=== PATIENT | male | born 1985 | race Caucasian/White ===

== ENCOUNTER 2016-09-14 11:02 | Emergency (ER) | payer SELFPAY ==
[~2016-09-14] VITALS: Ht 175.3 cm; Wt 80.0 kg
[2016-09-14 11:05] VITALS: BP 150/76; PULSE 83; RESP 16; TEMP 98.3; O2SAT 98
[2016-09-14] MEDS ORDERED: SODIUM CHLOR 0.9% 1000 ML INJ 1,000 ML IV SCH (11:38)
[2016-09-14] MEDS ORDERED: MORPHINE SULFATE 4 MG/ML INJ IV PUSH ONE ×2 (11:45→13:15)
[2016-09-14] MEDS ORDERED: ONDANSETRON HCL 4 MG/2 ML VIAL IVP ONE (11:45)
[2016-09-14] MEDS ORDERED: KETOROLAC TROMETHAMINE 30 MG/ML (IVP) VIAL IVP ONE (11:45)
--- NOTE | 2016-09-14 11:45 | PD ---
HPI Chief Complaint: GI Complaint Time Seen by Provider: 11:30 Travel History International Travel<30 days: No Contact w/Intl Traveler<30days: No Traveled to known affect area: No History of Present Illness HPI Patient is a 30-year-old male with history of Crohn's disease here with complaint of abdominal pain. Patient states that he has had abdominal pain for the last week, primarily right lower quadrant radiating throughout the abdomen. This is crampy in nature and associated with diarrhea and some darker colored stool though no kelton hematochezia. Patient perceives this to be typical for his Crohn's flare. He is here visiting family from [place]. He called and spoke with his physician in [place] who called him a Medrol Dosepak to the pharmacy which she started taking 5 days ago. Patient has not had improvement. He has been compliant with his Humira every other week, mesalamine 3 times a day, and Percocet 10/325, Zofran 8 mg when necessary. At had any fevers, chills. Some nausea but no vomiting. He does have a history of strictures resulting in bowel obstruction requiring small bowel resection 3. He is status post appendectomy. [facility] Past Medical History Diminished Hearing: No Gastrointestinal Disorders: Yes (CROHNS) Tetanus Vaccination: Unknown Influenza Vaccination: No Past Surgical History Abdominal Surgery: Yes (small bowel resection 3) Appendectomy: Yes Social History Alcohol Use: No Tobacco Use: No Substance Use: No Allergies-Medications (Allergen,Severity, Reaction): Coded Allergies: No Known Allergies (Unverified , 09/14/16) Review of Systems Except as stated in HPI: all other systems reviewed are Neg Physical Exam Narrative GENERAL: Well-appearing male in no acute distress SKIN: Focused skin assessment warm/dry. HEAD: Normocephalic. EYES: No scleral icterus. No injection or drainage. ENT: Mucous membranes pink and moist. NECK: Supple CARDIOVASCULAR: Regular rate and rhythm. RESPIRATORY: No accessory muscle use. GASTROINTESTINAL: Well-healed old surgical scars. Abdomen soft, mild right lower quadrant tenderness to palpation, periumbilical tenderness to palpation without rebound or guarding MUSCULOSKELETAL: Normal gait NEUROLOGICAL: Awake and alert. Normal speech. PSYCHIATRIC: Appropriate mood and affect; insight and judgment normal. Data Data Last Documented VS Vital Signs Date Time Temp Pulse Resp B/P Pulse Ox O2 Delivery O2 Flow Rate FiO2 09/14/16 12:53 16 6/25/17 11:05 98.3 83 150/76 98 Orders Complete Blood Count With Diff (09/14/16 11:38) Comprehensive Metabolic Panel (09/14/16 11:38) Lipase (09/14/16 11:38) Urinalysis - C+S If Indicated (09/14/16 11:38) Iv Access Insert/Monitor (09/14/16 11:38) Oximetry (09/14/16 11:38) Morphine Inj (Morphine Inj) (09/14/16 11:45) Ondansetron Inj (Zofran Inj) (09/14/16 11:45) Sodium Chlor 0.9% 1000 Ml Inj (Ns 1000 M (09/14/16 11:38) Sodium Chloride 0.9% Flush (Ns Flush) (09/14/16 11:45) Ketorolac Inj (Toradol Inj) (09/14/16 11:45) Vascular Access Team Consult/P PRN (09/14/16 11:57) Vascular Poc Ultrasound (09/14/16 ) Labs Laboratory Tests Test 09/14/16 12:00 White Blood Count 9.0 TH/MM3 Red Blood Count 5.58 MIL/MM3 Hemoglobin 16.1 GM/DL Hematocrit 47.1 % Mean Corpuscular Volume 84.4 FL Mean Corpuscular Hemoglobin 28.8 PG Mean Corpuscular Hemoglobin 34.1 % Concent Red Cell Distribution Width 16.5 % Platelet Count 241 TH/MM3 Mean Platelet Volume 7.3 FL Neutrophils (%) (Auto) 73.1 % Lymphocytes (%) (Auto) 17.0 % Monocytes (%) (Auto) 8.0 % Eosinophils (%) (Auto) 1.8 % Basophils (%) (Auto) 0.1 % Neutrophils # (Auto) 6.6 TH/MM3 Lymphocytes # (Auto) 1.5 TH/MM3 Monocytes # (Auto) 0.7 TH/MM3 Eosinophils # (Auto) 0.2 TH/MM3 Basophils # (Auto) 0.0 TH/MM3 CBC Comment DIFF FINAL Differential Comment Urine Color LIGHT-YELLOW Urine Turbidity CLEAR Urine pH 7.5 Urine Specific [place] 1.005 Urine Protein NEG mg/dL Urine Glucose (UA) NEG mg/dL Urine Ketones NEG mg/dL Urine Occult Blood NEG Urine Nitrite NEG Urine Bilirubin NEG Urine Urobilinogen LESS THAN 2.0 MG/DL Urine Leukocyte Esterase NEG Urine WBC LESS THAN 1 /hpf Microscopic Urinalysis Comment CULT NOT INDICATED Sodium Level 137 MEQ/L Potassium Level 4.0 MEQ/L Chloride Level 103 MEQ/L Carbon Dioxide Level 28.4 MEQ/L Anion Gap 6 MEQ/L Blood Urea Nitrogen 13 MG/DL Creatinine 0.93 MG/DL Estimat Glomerular Filtration 94 ML/MIN Rate Random Glucose 79 MG/DL Calcium Level 8.7 MG/DL Total Bilirubin 0.7 MG/DL Aspartate Amino Transf 14 U/L (AST/SGOT) Alanine Aminotransferase 25 U/L (ALT/SGPT) Alkaline Phosphatase 88 U/L Total Protein 7.3 GM/DL Albumin 3.7 GM/DL Lipase 77 U/L [facility] Medical Decision Making Medical Screen Exam Complete: Yes Emergency Medical Condition: Yes Medical Record Reviewed: Yes Differential Diagnosis 30-year-old male with history of Crohn's with previous strictures/bowel obstruction requiring small bowel resection here with increasing right lower quadrant him. Local dental pain 1 week typical for his previous Crohn's flare. Differential includes Crohn's flare, stricture, abscess, fistula, and less likely bowel obstruction. Patient is status post appendectomy. Narrative Course Patient placed on monitor, IV established and blood obtained. Given 1 L normal saline bolus, 4 mg Zofran, 4 mg morphine, 30 mg Toradol. CBC, CMP, lipase and urinalysis unremarkable. Patient still uncomfortable requiring repeat doses of morphine but abdominal examination remains benign and given his normal laboratory workup he and I both would like to avoid imaging if he's had multiple CT scans in the past. We'll discharged home with steroid burst outpatient GI follow-up. Diagnosis Primary Impression: Crohn's colitis Qualified Code: K50.10 - Crohn's colitis, without complications Referrals: [facility] call for appointment Additional Instructions: Steroids as prescribed. Continue home pain medications and antinausea medications. Consider follow-up with your GI physician and Kevin versus returning to [place]. Med/Other Pt SpecificInfo: Prescription(s) given Scripts Prednisone 50 Mg Tab50 Mg PO DAILY 5 Days Ref 0 Prov:Fanny Rainey MD 09/14/16 Disposition: 01 DISCHARGE HOME Condition: Stable Fanny Rainey MD Sep 14, 2016 11:45
[2016-09-14 12:00] VITALS: RESP 16
[2016-09-14] MEDS: SODIUM CHLORIDE 0.9% FLUSH 10 ML FLUSH IV FLUSH PRN ×2 (12:19→13:20)
[2016-09-14 12:38] LABS: AUTOMATED NEUTROPHIL # 6.6 TH/MM3 (1.8-7.7); BASOPHIL % 0.1 % (0.0-2.0); EOSINOPHIL # 0.2 TH/MM3 (0-0.4); EOSINOPHIL % 1.8 % (0.0-4.0); HEMATOCRIT 47.1 % (39.0-51.0); HEMO FLAGS DIFF FINAL; LYMPHOCYTE # 1.5 TH/MM3 (1.0-4.8); MEAN CELL VOLUME 84.4 FL (80.0-100.0); MEAN CORPUSCULAR HEMOGLOBIN 28.8 PG (27.0-34.0); MEAN CORPUSCULAR HGB CONC 34.1 % (32.0-36.0); NEUT % 73.1 % (16.0-70.0); PLATELET COUNT 241 TH/MM3 (150-450); RED BLOOD COUNT 5.58 MIL/MM3 (4.50-5.90); RED CELL DISTRIBUTION WIDTH 16.5 % (11.6-17.2)
[2016-09-14 12:45] LABS: BLOOD, URINE NEG (NEG); GLUCOSE,URINE NEG (NEG); KETONE, URINE NEG (NEG); NITRITE,URINE NEG (NEG); PH, URINE 7.5 (5.0-8.5); URINE COLOR LIGHT-YELLOW (YELLW/STRAW)
[2016-09-14 12:49] LABS: COMMENT (UR) CULT NOT INDICATED; CULTURE IF INDICATED CULT NOT INDICATED
[2016-09-14 12:57] LABS: ANION GAP 6 MEQ/L (5-15); AST (GOT) 14 U/L (15-37); BICARBONATE 28.4 MEQ/L (21.0-32.0); BLOOD UREA NITROGEN 13 MG/DL (7-18); CHLORIDE 103 MEQ/L (98-107); GLOMERULAR FILTRATION RATE 94 ML/MIN (>89); SODIUM (NA) 137 MEQ/L (136-145)
[2016-09-14 12:58] LABS: ALT (GPT) 25 U/L (12-78)
[2016-09-14 13:00] LABS: ALKALINE PHOSPHATASE 88 U/L (45-117); TOTAL BILIRUBIN ADULT 0.7 MG/DL (0.2-1.0)
[2016-09-14] MEDS ORDERED: PRED50 PO (13:14)
[2016-09-14] MEDS ORDERED: oxyCODONE/ACETAMINOPHEN 10 MG/325 MG TAB PO ONE (13:15)
[2016-09-14 13:38] VITALS: RESP 16
== END 2016-09-14 13:39 | disposition home or self-care (01) ==
LOC: NEPD 11:02
DX: K50.10 Crohn's disease of large intestine without complications (principal)
CPT/HCPCS: 80053; 81001; 83690; 85025; 96361; 96374; 96375; 99285; J1885; J2270; J2405; J7030

== ENCOUNTER 2016-11-28 19:03 | Emergency (ER) | payer MEDICAID, OTHER ==
[~2016-11-28] VITALS: Ht 175.3 cm; Wt 82.0 kg
[~2016-11-28 19:03] MED LIST: PRED50 PO
[2016-11-28 19:05] VITALS: BP 131/83; PULSE 88; RESP 15; TEMP 98.5; O2SAT 97
[2016-11-28] MEDS ORDERED: ZOFR8TAB4 SL (19:15)
[2016-11-28] MEDS ORDERED: PROT40TA PO (19:15)
[2016-11-28] MEDS ORDERED: MESA1TAB2 PO (19:15)
[2016-11-28] MEDS ORDERED: HUMI40KI SQ (19:15)
[2016-11-28] MEDS ORDERED: PERC10TA27 PO (19:15)
[2016-11-28] MEDS ORDERED: LEVE500 PO (19:15)
[2016-11-28] MEDS ORDERED: SODIUM CHLOR 0.9% 1000 ML INJ 1,000 ML IV SCH (19:34)
--- NOTE | 2016-11-28 19:36 | PD ---
HPI Chief Complaint: GI Complaint Time Seen by Provider: 19:21 Travel History International Travel<30 days: No Contact w/Intl Traveler<30days: No Traveled to known affect area: No History of Present Illness HPI 31-year-old male came to the emergency room with history of abdominal pain, nausea and vomiting. Patient says that he has history of Crohn's disease and this has been going on for over 1 week. He was at [facility] twice last week when he had CAT scans done both times. He was discharged home and was told that he had some inflammation that goes with Crohn's disease. Patient GI is from [place] and patient has had past 10 years of extensive Crohn's history with multiple surgery as per him. He did not appear to be in significant distress. Vital signs were stable. Describes pain all over the abdomen. No blood in the stool or vomit. Patient said last vomiting was 2-4 hours ago. He finished a course steroid tapering dose last dose of prednisone was yesterday. He is on fentanyl patch at home along with Pentasa, Zofran ODT as well as Vicodin's. [facility] Past Medical History Narrative Medical list of his past medical, surgical, social and family history is reviewed from the nursing note. Diminished Hearing: No Gastrointestinal Disorders: Yes (CROHNS) Past Surgical History Abdominal Surgery: Yes (small bowel resection 3) Appendectomy: Yes Social History Alcohol Use: Yes (SOCIAL) Tobacco Use: No Substance Use: No Allergies-Medications (Allergen,Severity, Reaction): Coded Allergies: No Known Allergies (Unverified , 12/01/16) Comments No known drug allergies. Reported Meds & Prescriptions Reported Meds & Active Scripts Active Zofran Odt (Ondansetron Odt) 8 Mg Tab 8 Mg SL Q12HR PRN Reported Prednisone 20 Mg Tab 20 Mg PO TID 40 MG twice a day x 3 days, then 20 MG daily x 3 days, then 10 MG daily x 3 days Percocet (Oxycodone-Acetaminophen) 10-325 mg Tab 1 Tab PO Q6H PRN Humira 2-Pack Inj (Adalimumab 2-Pack Inj) 40 Mg/0.8 Ml Syr 40 Mg SQ Q14D Protonix (Pantoprazole Sodium) 40 Mg Tab 40 Mg PO BID Mesalamine DR (Mesalamine) 800 Mg Tab 800 Mg PO TID Keppra (Levetiracetam) 500 Mg Tab 500 Mg PO BID Narrative Medication List of his home medications reviewed from the nursing note. Review of Systems Except as stated in HPI: all other systems reviewed are Neg Physical Exam Narrative GENERAL: Awake, alert, mild distress SKIN: Focused skin assessment warm/dry. HEAD: Atraumatic. Normocephalic. EYES: Pupils equal and round. No scleral icterus. No injection or drainage. ENT: No nasal bleeding or discharge. Mucous membranes pink and moist. NECK: Trachea midline. No JVD. CARDIOVASCULAR: Regular rate and rhythm. No murmur appreciated. RESPIRATORY: No accessory muscle use. Clear to auscultation. Breath sounds equal bilaterally. GASTROINTESTINAL: Abdomen soft, non-tender, nondistended. Hepatic and splenic margins not palpable. MUSCULOSKELETAL: No obvious deformities. No clubbing. No cyanosis. No edema. NEUROLOGICAL: Awake and alert. No obvious cranial nerve deficits. Motor grossly within normal limits. Normal speech. PSYCHIATRIC: Appropriate mood and affect; insight and judgment normal. Data Data Last Documented VS Orders Orders Complete Blood Count With Diff (11/28/16 19:34) Comprehensive Metabolic Panel (11/28/16 19:34) Lipase (11/28/16 19:34) Iv Access Insert/Monitor (11/28/16 19:34) Ecg Monitoring (11/28/16 19:34) Oximetry (11/28/16 19:34) Ondansetron Inj (Zofran Inj) (11/28/16 19:45) Sodium Chlor 0.9% 1000 Ml Inj (Ns 1000 M (11/28/16 19:34) Sodium Chloride 0.9% Flush (Ns Flush) (11/28/16 19:45) Ketorolac Inj (Toradol Inj) (11/28/16 19:45) Morphine Inj (Morphine Inj) (11/28/16 20:30) Labs Laboratory Tests Test 11/28/16 19:41 White Blood Count 7.5 TH/MM3 Red Blood Count 5.18 MIL/MM3 Hemoglobin 15.3 GM/DL Hematocrit 44.2 % Mean Corpuscular Volume 85.4 FL Mean Corpuscular Hemoglobin 29.6 PG Mean Corpuscular Hemoglobin Concent 34.6 % Red Cell Distribution Width 15.3 % Platelet Count 292 TH/MM3 Mean Platelet Volume 7.4 FL Neutrophils (%) (Auto) 56.6 % Lymphocytes (%) (Auto) 29.0 % Monocytes (%) (Auto) 11.1 % Eosinophils (%) (Auto) 2.8 % Basophils (%) (Auto) 0.5 % Neutrophils # (Auto) 4.3 TH/MM3 Lymphocytes # (Auto) 2.2 TH/MM3 Monocytes # (Auto) 0.8 TH/MM3 Eosinophils # (Auto) 0.2 TH/MM3 Basophils # (Auto) 0.0 TH/MM3 CBC Comment DIFF FINAL Differential Comment Blood Urea Nitrogen 9 MG/DL Creatinine 0.99 MG/DL Random Glucose 84 MG/DL Total Protein 8.1 GM/DL Albumin 4.1 GM/DL Calcium Level 8.6 MG/DL Alkaline Phosphatase 87 U/L Aspartate Amino Transf (AST/SGOT) 23 U/L Alanine Aminotransferase (ALT/SGPT) 24 U/L Total Bilirubin 0.4 MG/DL Sodium Level 139 MEQ/L Potassium Level 4.2 MEQ/L Chloride Level 105 MEQ/L Carbon Dioxide Level 26.4 MEQ/L Anion Gap 8 MEQ/L Estimat Glomerular Filtration Rate 87 ML/MIN Lipase 92 U/L [facility] Medical Decision Making Medical Screen Exam Complete: Yes Emergency Medical Condition: Yes Medical Record Reviewed: Yes Differential Diagnosis Acute appendicitis, acute on chronic abdominal pain, Crohn's fill her Narrative Course 8:59 PM blood test results were done and they're back and are completely within normal limits. Because patient had 2 CAT scans done within past 1 week I'm not subjecting him to anymore radiations. We have called [facility] and asked them to fax these paperwork of the results but I have not received it yet. Patient was given IV fluid and IV Toradol but he has asked by nurse constantly to get some opiates since he is on a lot of opiates at home and as per him Toradol usually will do nothing. I gave him morphine but at this point given all the test results I am comfortable discharging him home. He needs to follow up with his GI in [place] at the latest possibility. Procedures EKG Prior to Arrival: No Diagnosis Primary Impression: Chronic abdominal pain Additional Impression: Vomiting Qualified Codes: R11.2 - Nausea with vomiting, unspecified Additional Instructions: Continue taking her medications like is supposed to. When earliest possible follow-up with your GI specialist. Disposition: 01 DISCHARGE HOME Condition: Stable Anita,Shravanti R. MD Nov 28, 2016 19:36
[2016-11-28] MEDS ORDERED: SODIUM CHLORIDE 0.9% FLUSH 10 ML FLUSH IV FLUSH PRN (19:45)
[2016-11-28] MEDS ORDERED: ONDANSETRON HCL 4 MG/2 ML VIAL IVP ONE (19:45)
[2016-11-28] MEDS ORDERED: KETOROLAC TROMETHAMINE 30 MG/ML (IVP) VIAL IVP ONE (19:45)
[2016-11-28 19:50] VITALS: O2SAT 98
[2016-11-28 20:04] LABS: AUTOMATED NEUTROPHIL # 4.3 TH/MM3 (1.8-7.7); BASOPHIL % 0.5 % (0.0-2.0); EOSINOPHIL # 0.2 TH/MM3 (0-0.4); EOSINOPHIL % 2.8 % (0.0-4.0); HEMATOCRIT 44.2 % (39.0-51.0); HEMO FLAGS DIFF FINAL; LYMPHOCYTE # 2.2 TH/MM3 (1.0-4.8); MEAN CELL VOLUME 85.4 FL (80.0-100.0); MEAN CORPUSCULAR HEMOGLOBIN 29.6 PG (27.0-34.0); MEAN CORPUSCULAR HGB CONC 34.6 % (32.0-36.0); MONO % 11.1 % (0.0-8.0); NEUT % 56.6 % (16.0-70.0); PLATELET COUNT 292 TH/MM3 (150-450); RED BLOOD COUNT 5.18 MIL/MM3 (4.50-5.90); RED CELL DISTRIBUTION WIDTH 15.3 % (11.6-17.2); WHITE BLOOD COUNT 7.5 TH/MM3 (4.0-11.0)
[2016-11-28 20:29] LABS: ALT (GPT) 24 U/L (12-78)
[2016-11-28] MEDS ORDERED: MORPHINE SULFATE 4 MG/ML INJ IV PUSH ONE (20:30)
[2016-11-28 20:31] LABS: ALKALINE PHOSPHATASE 87 U/L (45-117); ANION GAP 8 MEQ/L (5-15); AST (GOT) 23 U/L (15-37); BICARBONATE 26.4 MEQ/L (21.0-32.0); BLOOD UREA NITROGEN 9 MG/DL (7-18); CHLORIDE 105 MEQ/L (98-107); GLOMERULAR FILTRATION RATE 87 ML/MIN (>89); POTASSIUM 4.2 MEQ/L (3.5-5.1); SODIUM (NA) 139 MEQ/L (136-145); TOTAL BILIRUBIN ADULT 0.4 MG/DL (0.2-1.0)
== END 2016-11-28 21:12 | disposition home or self-care (01) ==
LOC: NEPC 19:03
DX: K50.90 Crohn's disease, unspecified, without complications (principal); G89.29 Other chronic pain
CPT/HCPCS: 80053; 83690; 85025; 96374; 96375; 99284; J1885; J2270; J2405; J7030

== ENCOUNTER 2016-12-01 19:17 | Emergency (ER) | payer MEDICAID ==
[~2016-12-01] VITALS: Ht 175.3 cm; Wt 82.0 kg
[2016-12-01 19:17] VITALS: BP 130/68; PULSE 83; RESP 16; TEMP 98.8; O2SAT 96
[~2016-12-01 19:17] MED LIST changes: +HUMI40KI SQ; +LEVE500 PO; +MESA1TAB2 PO; +PERC10TA27 PO; -PRED50 PO; +PROT40TA PO; +ZOFR8TAB4 SL
[2016-12-01] MEDS ORDERED: PRED20 PO (21:20)
--- NOTE | 2016-12-01 21:38 | PD ---
HPI Chief Complaint: GI Complaint Time Seen by Provider: 21:19 Travel History International Travel<30 days: No Contact w/Intl Traveler<30days: No Traveled to known affect area: No History of Present Illness HPI This patient complains of nausea vomiting and abdominal pain. He reports history of Crohn's disease. No fever. Severity of symptoms looks mild. No alleviating factors. He was here 3 days ago with the same complaints and had normal workup. He has run out of his fentanyl patches. Duration 3 days PFSH Past Medical History Diminished Hearing: No Gastrointestinal Disorders: Yes (CROHNS) Past Surgical History Abdominal Surgery: Yes (small bowel resection 3) Appendectomy: Yes Social History Alcohol Use: Yes (SOCIAL) Tobacco Use: No Substance Use: No Allergies-Medications (Allergen,Severity, Reaction): Coded Allergies: No Known Allergies (Unverified , 12/01/16) Reported Meds & Prescriptions Reported Meds & Active Scripts Active Reported Prednisone 20 Mg Tab 20 Mg PO TID 40 MG twice a day x 3 days, then 20 MG daily x 3 days, then 10 MG daily x 3 days Percocet (Oxycodone-Acetaminophen) 10-325 mg Tab 1 Tab PO Q6H PRN Zofran Odt (Ondansetron Odt) 8 Mg Tab 8 Mg SL Q12H PRN Humira 2-Pack Inj (Adalimumab 2-Pack Inj) 40 Mg/0.8 Ml Syr 40 Mg SQ Q14D Protonix (Pantoprazole Sodium) 40 Mg Tab 40 Mg PO BID Mesalamine DR (Mesalamine) 800 Mg Tab 800 Mg PO TID Keppra (Levetiracetam) 500 Mg Tab 500 Mg PO BID Review of Systems General / Constitutional: No: Fever Eyes: No: Visual changes HENT: No: Headaches Cardiovascular: No: Chest Pain or Discomfort Respiratory: No: Shortness of Breath Gastrointestinal: Positive: Nausea, Vomiting, Abdominal Pain Genitourinary: No: Dysuria Musculoskeletal: No: Pain Skin: No Rash Neurologic: No: Weakness Psychiatric: No: Depression Endocrine: No: Polydipsia Hematologic/Lymphatic: No: Easy Bruising Physical Exam Narrative GENERAL: Well-nourished, well-developed patient in no apparent distress. SKIN: Focused skin assessment reveals no rash and nodules. Skin is Warm and dry. HEAD: Atraumatic. Normocephalic. EYES: Pupils equal and round. No scleral icterus. No injection or drainage. ENT: No nasal bleeding or discharge. Mucous membranes pink and moist. NECK: Trachea midline. No JVD. CARDIOVASCULAR: Regular rate and rhythm. No murmur appreciated. RESPIRATORY: No accessory muscle use. Clear to auscultation. Breath sounds equal bilaterally. GASTROINTESTINAL: Abdomen soft, non-tender, nondistended. Hepatic and splenic margins not palpable. MUSCULOSKELETAL: No obvious deformities. No clubbing. No cyanosis. No edema. NEUROLOGICAL: Awake and alert. No obvious cranial nerve deficits. Motor grossly within normal limits. Normal speech. PSYCHIATRIC: Appropriate mood and affect; insight and judgment normal. Data Data Last Documented VS Vital Signs Date Time Temp Pulse Resp B/P (MAP) Pulse Ox O2 Delivery O2 Flow Rate FiO2 12/01/16 21:20 20 12/01/16 19:17 98.8 83 130/68 (88) 96 Room Air Orders Orders Iv Access Insert/Monitor (12/01/16 21:52) Complete Blood Count With Diff (12/01/16 21:52) Basic Metabolic Panel (Bmp) (12/01/16 21:52) Ondansetron Inj (Zofran Inj) (12/01/16 22:00) Morphine Inj (Morphine Inj) (12/01/16 22:00) Labs Laboratory Tests Test 12/01/16 21:50 White Blood Count 8.2 TH/MM3 Red Blood Count 5.32 MIL/MM3 Hemoglobin 15.8 GM/DL Hematocrit 46.1 % Mean Corpuscular Volume 86.6 FL Mean Corpuscular Hemoglobin 29.6 PG Mean Corpuscular Hemoglobin Concent 34.2 % Red Cell Distribution Width 15.1 % Platelet Count 267 TH/MM3 Mean Platelet Volume 7.6 FL Neutrophils (%) (Auto) 88.5 % Lymphocytes (%) (Auto) 10.2 % Monocytes (%) (Auto) 1.1 % Eosinophils (%) (Auto) 0.0 % Basophils (%) (Auto) 0.2 % Neutrophils # (Auto) 7.2 TH/MM3 Lymphocytes # (Auto) 0.8 TH/MM3 Monocytes # (Auto) 0.1 TH/MM3 Eosinophils # (Auto) 0.0 TH/MM3 Basophils # (Auto) 0.0 TH/MM3 CBC Comment DIFF FINAL Differential Comment Blood Urea Nitrogen 11 MG/DL Creatinine 1.09 MG/DL Random Glucose 116 MG/DL Calcium Level 9.1 MG/DL Sodium Level 139 MEQ/L Potassium Level 4.1 MEQ/L Chloride Level 105 MEQ/L Carbon Dioxide Level 25.6 MEQ/L Anion Gap 8 MEQ/L Estimat Glomerular Filtration Rate 78 ML/MIN [facility] Medical Decision Making Medical Screen Exam Complete: Yes Emergency Medical Condition: Yes Medical Record Reviewed: Yes Differential Diagnosis Crohn's flare, colitis, ileus Narrative Course I have reviewed the patient's electronic medical record. Reviewed his workup from 3 days ago. Patient's vital signs are normal His examination is normal He is not dehydrated. His abdomen is soft and benign and nontender. IV placed CBC is normal Metabolic profile is normal I gave him IV Zofran and IV morphine On recheck he looks like he is resting comfortably. Stable for outpatient follow-up I wrote some Zofran. Offered some tramadol but he declines Diagnosis Primary Impression: Abdominal pain Qualified Codes: R10.84 - Generalized abdominal pain Additional Instructions: The patient was advised to follow up with their physician and return if they worsen. Med/Other Pt SpecificInfo: Prescription(s) given Scripts Ondansetron Odt (Zofran Odt) 8 Mg Tab 8 MG SL Q12HR Y for NAUSEA OR VOMITING, #12 TAB 0 Refills Prov: Khris Lincoln MD 12/01/16 Disposition: 01 DISCHARGE HOME Condition: Stable Khris Lincoln MD Dec 01, 2016 21:38
[2016-12-01] MEDS ORDERED: MORPHINE SULFATE 4 MG/ML INJ IV PUSH ONE (22:00)
[2016-12-01] MEDS ORDERED: ONDANSETRON HCL 4 MG/2 ML VIAL IV ONE (22:00)
[2016-12-01 22:21] LABS: AUTOMATED NEUTROPHIL # 7.2 TH/MM3 (1.8-7.7); BASOPHIL % 0.2 % (0.0-2.0); HEMATOCRIT 46.1 % (39.0-51.0); HEMO FLAGS DIFF FINAL; LYMPH % 10.2 % (9.0-44.0); LYMPHOCYTE # 0.8 TH/MM3 (1.0-4.8); MEAN CELL VOLUME 86.6 FL (80.0-100.0); MEAN CORPUSCULAR HEMOGLOBIN 29.6 PG (27.0-34.0); MEAN CORPUSCULAR HGB CONC 34.2 % (32.0-36.0); MONO % 1.1 % (0.0-8.0); NEUT % 88.5 % (16.0-70.0); PLATELET COUNT 267 TH/MM3 (150-450); RED BLOOD COUNT 5.32 MIL/MM3 (4.50-5.90); RED CELL DISTRIBUTION WIDTH 15.1 % (11.6-17.2); WHITE BLOOD COUNT 8.2 TH/MM3 (4.0-11.0)
[2016-12-01 22:54] LABS: BICARBONATE 25.6 MEQ/L (21.0-32.0); POTASSIUM 4.1 MEQ/L (3.5-5.1)
[2016-12-01] MEDS ORDERED: ZOFR8TAB4 SL (23:04)
[2016-12-01 23:51] VITALS: RESP 16
== END 2016-12-01 23:54 | disposition home or self-care (01) ==
LOC: NEPD 19:17
DX: R10.84 Generalized abdominal pain (principal); K50.90 Crohn's disease, unspecified, without complications
CPT/HCPCS: 80048; 85025; 96374; 96375; 99284; J2270; J2405